=== PATIENT | male | born 1950 | race African-American/Black ===

== ENCOUNTER 2021-02-11 15:03 | Emergency (ER) | payer OTHER ==
[~2021-02-11] VITALS: Ht 185.4 cm; Wt 79.4 kg
--- NOTE | ~2021-02-11 | EMS ---
[address] [address] EMS Patient Care Report Name: PHAM BRICEÑO Room #: DEP DEVANTE Sylvester#: [id number] Admission: 02/11/21 Attend Phys: Discharge: 02/12/21 Date of : 54 Report #: [id number] THIS REPORT FOR: //name// Report Transmitted: 02/14/2021 09:32 EMS Care Summary [place], [place]/[facility] Incident [id number] @ 02/11/2021 14:41 Incident Location [address] [place] [address] Patient PHAM BRICEÑO Male, 70 Years 1950 Patient Address [address] [place] [address] Patient History Anemia, Chief Complaint TRANSPORT Disposition Transported No Lights/[place] Dispatch Reason Sick Person Transported To [facility] Narrative ARRIVED TO FIND PT WALKING TOWARD AMBULANCE, STEPS INSIDE ONTO COT, SECURED WITH STRAPS X2. PT REPORTS NEEDING TRANSPORT TO [facility] FOR LOW HEMOGLOBIN. ALS ASSESSMENT VITALS OBTAINED. ENROUTE, PT CONDITION UNCHANGED. ARRIVED. PT TAKEN INSIDE ON COT TO ER 2. PT WALKS TO BED. REPORT GIVEN TO [address] [address] EMS Patient Care Report Name: PHAM BRICEÑO Room #: DEP ER Nga#: [id number] Admission: 02/11/21 Attend Phys: Discharge: 02/12/21 Date of : 54 Report #: [id number] NURSE, PT CARE TRANSFERRED. Initial Vitals @14:58P: 97,R: 20,BP: 142/83,Pain: 0/10,GCS: 15,CO: 5,SpO2: 99,Revised Trauma: 12, @14:55P: 102,R: 22,Pain: 0/10,GCS: 15,SpO2: 99, Assessments @15:09MENTAL:No Abnormalities,SKIN:No Abnormalities,HEENT:Head/Face: No Abnormalities,Eyes: No Abnormalities,Neck/Airway: No Abnormalities,LUNG SOUNDS:General: No Abnormalities,Left Upper: No Abnormalities,Right Upper: No Abnormalities,Left Lower: No Abnormalities,Right Lower: No Abnormalities,ABDOMEN:General: No Abnormalities,Left Upper: No Abnormalities,Right Upper: No Abnormalities,Left Lower: No Abnormalities,Right Lower: No Abnormalities,PELVIS//GI:No Abnormalities,EXTREMITIES:Left Arm: No Abnormalities,Right Arm: No Abnormalities,Left Leg: No Abnormalities,Right Leg: No Abnormalities,PULSE:NEURO:No Abnormalities, Impression Need for continuous medical supervision Procedures @15:08ALS AssessmentResponse: UnchangedSucceeded Timeline 14:34,Call Received 14:34,Dispatch Notified 14:41,Dispatched 14:41,En Route 14:53,On Scene 14:54,At Patient 14:55,BP: / M,PULSE: 102,RR: 22 R,SPO2: 99 Ox,ETCO2: ,BG: ,PAIN: 0,GCS: 15, 14:57,Depart Scene 14:58,BP: 142/83 M,PULSE: 97,RR: 20 R,SPO2: 99 Ox,ETCO2: ,BG: ,PAIN: 0,GCS: 15, 14:59,At Destination 15:08,ALS Assessment,Response: UnchangedSucceeded, 15:15,Call Closed Disclaimer v1.1 Copyright 2020 [employer] This EMS Care Summary contains data elements from the applicable legal record (which may be displayed differently). It is designed to provide pertinent information for the following purposes: continuity of care, clinical quality, and state data reporting. The complete legal record is available to ED staff and administrators of the receiving hospital in [employer] Patient Tracker. All data is provided "as is."
[2021-02-11 15:41] LABS: ABSOLUTE NEUTROPHILS 2.8 thou/uL (1.4-8.2); BASOPHILS 0.5 % (0.0-2.0); EOSINOPHILS 2.6 % (0.0-3.0); LYMPHOCYTES 14.8 % (24.0-44.0); MCH 24.7 pg (26.0-34.0); MCHC 30.8 g/dL (28.0-37.0); MCV 80.2 fL (80.0-100.0); MONOCYTES 7.7 % (1.0-8.0); PLATELET COUNT 134 thou/uL (150-400); POLYS 74.4 % (36.0-66.0); RBC 2.44 mil/uL (4.50-6.00); RDW 19.9 % (10.5-14.5); WBC 3.8 thou/uL (4.0-11.0)
[2021-02-11 15:50] LABS: CREATININE 1.6 mg/dL (0.7-1.3); HEMATOCRIT 19.6 % (42.0-52.0); POTASSIUM 3.7 mmol/L (3.5-5.1)
[2021-02-11 15:53] LABS: APTT 27.8 Seconds (24.5-32.8); INR 1.14; PROTIME 12.4 Seconds (10.5-12.1)
[2021-02-11 15:56] LABS: ALBUMIN 2.8 g/dL (3.4-5.0); DIRECT BILIRUBIN < 0.1 mg/dL (<0.1-0.2); SGOT 21 U/L (15-37); SGPT 17 U/L (30-65); TOTAL BILIRUBIN 0.3 mg/dL (0.2-1.0); TOTAL PROTEIN 5.4 g/dL (6.4-8.2)
[2021-02-11 16:56] LABS: ANISOCYTOSIS 2+; HYPOCHROMASIA 2+; POIKILOCYTOSIS SLIGHT
[2021-02-11 20:54] VITALS: BP 127/55; BP 131/56
[2021-02-12 02:02] VITALS: BP 164/70
--- NOTE | 2021-02-14 07:27 | EKG ---
[address] [address] ELECTROCARDIOGRAM REPORT Name: PHAM BRICEÑO Room #: DEP Nga#: [id number] Admission: 02/11/21 Attend Phys: Discharge: 02/12/21 Date of : 54 Report #: [id number] [facility] ED Test Date: 2021-02-11 Test Time: 15:15:18 Pat Name: PHAM BRICEÑO Department: Room: Gender: M Mothers Helper: LESLIE : 1950 Requested By: Nathalie Ayala Order Number: [id number] MD: Shawn Diez Measurements Intervals [place] Rate: 80 P: -66 GA: 154 QRS: -58 QRSD: 150 T: 28 QT: 428 QTc: 494 Interpretive Statements Ectopic atrial rhythm RBBB No previous ECG available for comparison Electronically Signed On 02-14-2021 7:27:04 CDT by Shawn Diez [email or web address] <ELECTRONICALLY SIGNED> By: Shawn Diez MD, [facility] 02/14/21 0727 1515 1515 Shawn Diez MD, FACC /EPI
== END 2021-02-12 02:04 ==
LOC: ER 15:03
PROVIDERS: Emergency Medicine
DX: D64.9 Anemia, unspecified (principal); Z20.822 Contact with and (suspected) exposure to COVID-19; N28.9 Disorder of kidney and ureter, unspecified; Z85.038 Personal history of other malignant neoplasm of large intestine